=== PATIENT | male | born 1980 | race Caucasian/White ===

== ENCOUNTER 2025-04-25 19:48 | Emergency (ER) | payer OTHER, SELFPAY ==
[2025-04-25] VITALS (9 sets, daily range): BP systolic 136–161; BP diastolic 93–106; PULSE 82–110; RESP 12–26; TEMP 36.9; O2SAT 98–100
--- NOTE | ~2025-04-25 | XR_ITS ---
XR chest 2V Ordering provider: Hugo Aburto MD History: 44 years Male with . coughing, hemoptysis . Comparison: None. FINDINGS: MEDIASTINUM: The cardiac silhouette is not enlarged. LUNGS: No infiltrates, effusions or pneumothorax. OTHER: No free air under the diaphragm. IMPRESSION: No acute cardiopulmonary pathology. Reviewed, dictated and finalized at location A.
--- NOTE | ~2025-04-25 | CT_ITS ---
CT Scan of the Chest without Contrast: Clinical Indication: Esophageal perforation Technique: Contiguous sections were acquired throughout the neck and chest without intravenous contra st. 15 mL of oral contrast was administered just prior to the scan. Dose reduction technique was used on this scan by utilizing automated exposure control and iterative reconstruction technique. The dos e-length product (DLP) was 1184.48 mGy-cm. Findings: There is extensive pneumomediastinum, with additional subcutaneous emphysema extending into the neck. There is apparent extravasation of oral contrast in the distal esophagus along the right side, exten ding to the GE junction region. There is mild inflammatory change in the epigastric region. There are minimal bilateral pleural effusions, right greater than left. There is bibasilar consolidat ion, which could reflect atelectasis versus pneumonia. No pericardial effusion. Images through the upper abdomen reveal calcified gallstone.. Impression: Extravasation of contrast from the right side of the distal esophagus, with associated extensive pneu momediastinum and additional subcutaneous emphysema extending to the neck. Findings are consistent wi th esophageal perforation. Minimal bilateral pleural effusions, right greater than left. Bibasilar pulmonary consolidation. Correlate for atelectasis versus pneumonia. Reviewed, dictated and finalized at [facility]. Impression: Extravasation of contrast from the right side of the distal esophagus, with ass ociated extensive pneumomediastinum and additional subcutaneous emphysema exten ding to the neck. Findings are consistent with esophageal perforation. Minimal bilateral pleural effusions, right greater than left. Bibasilar pulmonary consolidation. Correlate for atelectasis versus pneumonia.
--- NOTE | ~2025-04-25 | CT_ITS ---
CTA chest abdomen pelvis Ordering provider: Sophie Lassiter MD History: . c/f esoph food bolus/perf . Comparison: None. Technique: CT angiogram chest, abdomen and pelvis was performed following timed intravenous injection of contrast. Thin slice axial images and reformatted coronal images were obtained. Three dimensional reformatted images of the chest were also obtained using a [employer] workstation. Radiation reduction t echnique utilized.The dose-length product was 651.6 mGy-cm. 100 mL Omnipaque 350 was given IV. FINDINGS: CHEST: --THORACIC AORTA: normal. No aneurysm, dissection or mediastinal hematoma. --GREAT VESSELS: Normal as visualized. --PULMONARY ARTERIES: No pulmonary embolus. --VISUALIZED THORACIC INLET: Normal. --MEDIASTINUM: Pneumomediastinum is noted extending to the lower neck and upper abdomen around the proximal stomach. Possible lucency in the wall of the esophagus distally is seen posteriorly which may indicate perfora tion. Coronary arteries: Normal. Heart/other: The heart is not enlarged. Lymph nodes: No mediastinal or hilar adenopathy. --LUNGS: Trace of pleural effusion on the right. No pulmonary nodules or masses. No infiltrates or effusions. No pneumothorax. Dependent atelectatic changes. --MUSCULOSKELETAL: Superficial soft tissues: The superficial soft tissues are normal. Bones: Normal Spine. ABDOMEN/PELVIS: --MUSCULOSKELETAL: Bones: Normal spine. Superficial soft tissues: The superficial soft tissues are normal. --UPPER ABDOMINAL ORGANS: Liver: Fat infiltration. Gallbladder: Stone in the neck of the gallbladder. Spleen: Normal. Stomach/duodenum: Normal. Pancreas: Normal. Adrenals: Normal. Kidneys: Normal. --PELVIC ORGANS: The bladder is normal. No bladder stones. --BOWEL AND MESENTERY: Colon: no evidence of diverticulitis.. Normal appendix. Small Bowel: Normal. No obstruction. Peritoneum/mesentery: No free air or free fluid. No mesenteric lymphadenopathy. --RETROPERITONEUM: No retroperitoneal lymphadenopathy. --ARTERIES: ABDOMINAL AORTA: Normal. No aneurysm or dissection. RENAL ARTERIES: Normal. CELIAC AXIS: Normal. SMA: Normal. VIDA: Normal. ILIAC AND VISUALIZED FEMORAL ARTERIES: Normal. MESENTERIC ARTERIES: Normal. IMPRESSION: CHEST: 1. No evidence of dissection or aneurysm. 2. Pneumo-mediastinum extending to the lower neck and upper abdomen with highly suggestive perforati on of the esophagus. Further evaluation advised. 3. Trace of right pleural effusion. ABDOMEN/PELVIS: 1. No evidence of appendicitis, diverticulitis or intestinal obstruction. 2. No dissection or aneurysm seen. 3. Fat infiltration of the liver. 4. Cholelithiasis. Dr. Lassiter was notified with the result of the patient at 11:59 PM on April 25, 2025 Reviewed, dictated and finalized at location A. IMPRESSION: CHEST: 1. No evidence of dissection or aneurysm. 2. Pneumo-mediastinum extending to the lower neck and upper abdomen with highl y suggestive perforation of the esophagus. Further evaluation advised. 3. Trace of right pleural effusion. ABDOMEN/PELVIS: 1. No evidence of appendicitis, diverticulitis or intestinal obstruction. 2. No dissection or aneurysm seen. 3. Fat infiltration of the liver. 4. Cholelithiasis. Dr. Lassiter was notified with the result of the patient at 11:59 PM on April 25
--- OUTSIDE RECORDS SUMMARY | 2025-04-25 19:50 | XMS_ITS | Continuity of Care Document ---
Author Organization [facility] Address [address] [place] [address] Phone Care Team Providers Care Longwall Foreman Name Role Phone Sunil Toussaint PA-C Unavailable Unavailab le Allergies, Adverse Reactions, Alerts Substance Reaction Status Criticality No Known Allergies Active No Inform ation Medications Medication Instructions Dosage Effective Dates (start - stop) Status Comments Franklin 7.5 mg-325 mg tablet take 1 - 2 by mouth route every 6 - 8 as needed 1-2 - Active Franklin 5 mg-325 mg tablet take 1-2 every 4-6 hours - Active multivitamin capsule - Active Prilosec OTC 20 mg tablet,delayed release - Active Procedures Procedure Date Hand Xray Min 3 Views Postop followup visit Hand Xray Min 3 Views Postop followup visit Hand Xray Min 3 Views Postop followup visit [facility], W/O Joint(s), Prefabricated Hand [facility]PP Metacarpal FX Hand Dislocation Percu Skltl Fix W/manip Office/outpatient visit,est, mod 2017 CT Upper Extremity WO Contrast 18 3D Rendering W/Interpretation And Report ing Hand Xray Min 3 Views Office/outpatient visit,new, mod 2017 Advance Directives Directive Yes / No Effective Date File Name No Information Encounters Encounter Description Practice Location Reason(s) For Visit Diagnoses Date Provider Providers Copied on Encounter [facility], [address], [place], [id number], [place] tel:[phone] [facility] hand (chief complaint) Pain in right handDisp fx of base of 5th MC bone, r hand, 7thD [address]. [address], [place], [id number] , [place]. tel: [phone] [facility], [address] [place] [address], [id number], [place] tel:[phone] [facility] hand (chief complaint) Pain in right handDisp fx of base of 5th MC bone, r hand, D 9 Breana Barber. [address], [place], [id number] , [place]. tel: [phone] [facility], [address] [place] [address], [id number], [place] tel:[phone] [facility] hand (chief complaint) Pain in right handClosed displaced fracture of base of fifth metacarpal bone of right hand with routine healing, subsequent encounter [address], [place], [id number] , [place]. tel: [phone] [facility], [address] [place] [address], [id number], tel:[phone] [facility] No Information [address], [place], [id number] , [place]. tel: [phone] Referring Provider: Delon Nicole, [address] [place] [address], [id number] . tel:[phone] [facility], [address] [place] [address], [id number], tel:[phone] [facility] No Information [address], [place], [id number] , [place]. tel: [phone] Referring Provider: Darwin Zimmerman, [address] [place], [address] . tel:[phone] [facility], [address] [place] [address], [id number], tel:[phone] [facility] No Information [address], [place], [id number] , [place]. [phone] Referring Provider: Bao Rene, [address] [place], [address] . tel:[phone] [facility], [address] [place] [address], [id number], tel:[phone] [facility] Closed nondisplaced fracture of fourth metacarpalDisp fx of base of fourth metacarpal bone, right hand, init [address] [place] [address], [id number] , [place]. [phone] Referring Provider: Darwin Zimmerman, [address] [place], [address] . tel:[phone] Office/outpat ient visit,est, mod [facility], [address] [place] [address], [id number], [place] tel:[phone] [place] [facility] right hand pain (chief complaint) Closed nondisplaced fracture of fourth metacarpal bone of right hand with routine healing, unspecified portion of metacarpal, subsequent encounter [address]. [address], [place], [id number] , [place]. [phone] [facility], [address] [place] [address], [id number], [place] tel:[phone] [facility] Pain in right hand [address] [place] [address], [id number] , [place]. tel:[phone] Office/outpat ient visit,new, mod [facility], [address], [place], [id number], tel:[phone] [facility] right hand (chief complaint) Pain in right handClosed nondisplaced fracture of fourth metacarpal bone of right hand, unspecified portion of metacarpal, initial encounterClosed nondisplaced fracture of fifth metacarpal bone of right hand, unspecified portion of metacarpal, initial encounter 8 [address] Gore. [address], [place], [id number] , [place]. tel:[phone] Family History Family Member Type Diagnosis Age At Onset Problem (finding) Family history of Diabe tayla mellitus Payers Payer name Insurance type Covered republican ID Authorromanafly tiburciochristy(s) [facility] [id number] Social History Type Description Quantity Date Captured Comments Alcohol Use Details Unknown Caffeine Use Details Unknown Tobacco Use Status Current non-smoker 19 Smoking Status Never smoker Non-Smoking Tobacco Use Details : No Details Available : No Details Available Sex Male Vital Signs Date / Time: Height Weight BMI Pulse Rate Blood Pressure Temperature Respiratory Rate Body Surface Area Head Circumference Head Circ. Percentile Wt./Maximino. Percentile BMI percentile Pulse Ox Inhaled Ox 2:39 PM 72.00 in 87.543 kg (193.00 lbs) 26.1 8 kg/m eter (2) 2.11 meter(2) Chief Complaint And Reason For Visit From encounter dated '12/02/2018 14:30'. hand (chief complaint) Reason For Referral Reason For Referral No Information Plan Of Treatment Date Type Action Status Future Order: Radiology Order Staples nd Xray Min 3 Views ([id number]), Ordered on: Ordered Future Order: Radiology Order Staples nd Xray Min 3 Views ([id number]), Ordered on: Ordered Future Order: Radiology Order Staples nd Xray Min 3 Views ([id number]), Ordered on: Ordered Future Order: Radiology Order CT Upper Extremity W/O Contrast ([id number]), Ordered on: Ordered Future Order: Radiology Order 3D Rendering W Interpretation And Reporting ([id number]), Ordered on: Ordered Future Order: Radiology Order Staples nd Xray Min 3 Views ([id number]), Ordered on: Ordered History Of Present Illness Encounter Date Complaint History Of Prese nt Illness hand hand hand Boo Poole is a 38 year old male who is 2 weeks and 1 day status posted closed reduction and percutaneous pinning of right fourth metacarpal fx and fifth carpometacarpal dislocation. He presents today with his pins in. He is doing well overall but in some intermittent pain. He had some questions concerning bathing and cleaning the hand and pin sites. The hand is stiff. right hand pain Mr Poole is a 38 year old male who complains of right hand pain. He presents with pain on the right side. He states that the symptoms have been acute traumatic and began on 09/25/2018. He indicates the injury occurred at home. Boo sts that he struck his hand The symptoms occur intermittently. Pertinent negatives include numbness. Boo has been in a splint since his injury. right hand Functional Status Date Functional Assessmen t No Information Instructions Date Instruction Additional Infor mation XR were discussed an d reviewed. The working diagnosis and discharge plan was discussed in detail with Boo. We are going to give him a removable splint to wear. No lifting or gripping activities. We will schedule a follow up appointment in 3-4 weeks. All questions and concerns were addressed; pt understands and agrees with plan. Related to Pain in right hand The working diagnosi s and discharge plan was discussed in detail with Boo. Ct shows that she fracture is subluxed at the ring metacarpal on the right hand. We recommend that he have this repaired surgically. We will refer him t Dr. Ley for further treatment. All questions and concerns were addressed; pt understands and agrees with plan. Related to Closed nondisplaced fracture of fourth metacarpal bone of right hand with routine healing, unspecified portion of metacarpal, subsequent encounter Assessments Type Assessment Date assessment Pain in right hand assessment Disp fx of base of 5th MC bone, r hand, 7thD Patient Care Teams Name Effective Dates (start - stop) Status Members No Information
--- NOTE | 2025-04-25 20:03 | PC.NURSE ---
Pt. to x-ray.
--- NOTE | 2025-04-25 20:10 | ED_ITS ---
HPI - GI Bleed General Chief complaint: GI Bleed <Hugo Aburto MD - Last Filed: 04/27/25 05:41> Stated complaint: cough up blood <Hugo Aburto MD - Last Filed: 04/27/25 05:41> Time Seen by Provider: 04/25/25 19:52 <Hugo Aburto MD - Last Filed: 04/27/25 05:41> History of Present Illness HPI Narrative: 44-year-old male with history of reflux esophagitis presenting to the emergency department today after coughing up a small amount of blood. He states he was eating pizza when he felt like some of it got stuck in his throat and he tried to force it down. He felt a sudden sensation in his abdomen with some pain and via only coughed and then coughed up a small amount of blood. Only happened 1 time. Did not have any persistent nausea vomiting since but endorses some retrosternal and epigastric discomfort afterwards. No shortness of breath or difficulty swallowing, no neck pain, difficulty ranging his head or neck, difficulty breathing or noticing any phonation changes. No trauma or injury otherwise. Was otherwise in his normal state of health. Has never happened before but states that he does get food sometimes stuck in his throat from the esophagitis. Takes medications for this at home. <Hugo Aburto MD - Last Filed: 04/27/25 05:41> Related Data Allergies/Adverse reactions: Allergies Allergy/AdvReac Type Severity Reaction Status Date / Time No Known Allergies Allergy Verified 04/25/25 20:21 <Hugo Aburto MD - Last Filed: 04/27/25 05:41> Review of Systems 2 Review of Systems: As reviewed above in HPI <Hugo Aburto MD - Last Filed: 04/27/25 05:41> PMFSH Past Medical History Medical History: Medical History Reflux esophagitis <Hugo Aburto MD - Last Filed: 04/27/25 05:41> Exam 2 Narrative: GENERAL: [Well-appearing, well-nourished, and in no acute distress.] HEAD: [Normocephalic, atraumatic.] EYES: [PERRLA and EOMI.] ENT: Nares clear, no rhinorrhea or epistaxis. Mucous membranes moist. NECK: Supple. CHEST: [Clear to auscultation. No respiratory distress.] HEART: [Regular rate and rhythm]. No murmur heard. [Normal peripheral pulses.] ABDOMEN: [Soft, nondistended], [nontender], [No rigidity or guarding] EXTREMITIES: Normal range of motion. [No edema.] SKIN: Warm, dry, no rash. NEURO: [No focal deficits]. Alert and oriented [x3.] PSYCH: [Normal mood and affect.] <Hugo Aburto MD - Last Filed: 04/27/25 05:41> Course Course Emergency Course: Patient signed out to me. Was reported that patient had been improving and his workup was generally unremarkable but around the time he PO challenged he acutely decompensated, experiencing tremendous pain and becoming restless, unable to lie flat and becoming profoundly diaphoretic. EKG had been ordered as had CT scan. Evaluated patient at bedside and he does appear uncomfortable, very diaphoretic. Patient has received antiemetics and analgesics. He require several doses in order to facilitate being able to be comfortable enough to lay still for study. Troponin is drawn and normal. CTA results as below. IV fluids and vancomycin and Zosyn are ordered. Patient's review of their insurance information regarding where to transfer. Based on this, started with [facility]. conference service coordinator called multiple times but did not get a response. conference service coordinator called us multiple times keeping us updated. Simultaneously, attempted to contact [facility] for transfer. I was informed by academic services coordinator that there cardiothoracic surgeon was just going into another case which would be very prolonged. Recommended proceeding with alternative locations. Spoke with cardiothoracic surgeon Dr Fischer (Dr Marrero) at [facility] ([facility]) who notes that pneumomediastinum alone does not confirm perforated esophagus. I note the new presence of pleural effusion, though depicted as trace. Recommends water soluble study (versus CT with oral contrast) and, if normal, observe patient and repeat in 12-[address] scan performed as below. Spoke again with Dr Fischer who asks for location of perforation. Spoke with Stat Rad radiologist Dr Raghav Pathak who confirms perforation is at the GE junction at the diaphragm, very obvious. Patient to be transferred ED to ED followed by immediately going to the OR. Spoke with Dr Kaminski, ED attending who accepts patient. Noted which antibiotics had been started. Given the delay in ability to transfer patient by [facility] EMS ground unit, patient to be flown by helicopter. He and his verify understanding. He receives another dose of Dilaudid just as flight crew arrives. == Critical Care: 1 or more vital organ systems impaired with a high probability of imminent or life-threatening deterioration in the patient's condition requiring frequent personal assessment and manipulation of the patient's condition. This included time spent evaluating the patient, speaking with EMS pre-hospital personnel and family, reviewing/interpreting laboratory/imaging studies, discussing the case with consultants or admitting teams, retrieving data and reviewing charts, monitoring for decompensation, documenting the visit, and performing bundled procedures exclusive of separately billed procedures. <Sophie Lassiter MD - Last Filed: 04/26/25 03:38> Vital Signs Vital signs: Vital Signs Pulse Rate 89 04/25/25 19:56 Respiratory Rate 12 04/25/25 19:56 Blood Pressure 148/104 H 04/25/25 19:56 Pulse Oximetry 100 04/25/25 19:56 Temperature 36.9 C 04/25/25 20:15 Pulse Rate 81 04/26/25 02:56 Respiratory Rate 18 04/26/25 02:56 Blood Pressure 137/97 H 04/26/25 02:56 Pulse Oximetry 04/26/25 02:56 Oxygen Delivery Nasal Cannula 04/26/25 00:42 Oxygen Flow Rate 2 04/26/25 00:42 <Hugo Aburto MD - Last Filed: 04/27/25 05:41> Vital Signs Pulse Rate 89 04/25/25 19:56 Respiratory Rate 12 04/25/25 19:56 Blood Pressure 148/104 H 04/25/25 19:56 Pulse Oximetry 100 04/25/25 19:56 Temperature 36.9 C 04/25/25 20:15 Pulse Rate 81 04/26/25 02:56 Respiratory Rate 18 04/26/25 02:56 Blood Pressure 137/97 H 04/26/25 02:56 Pulse Oximetry 100 04/26/25 02:56 Oxygen Delivery Nasal Cannula 04/26/25 00:42 Oxygen Flow Rate 2 04/26/25 00:42 <Sophie Lassiter MD - Last Filed: 04/26/25 03:38> MDM - GI Bleed MDM Narrative Medical decision making narrative: 44-year-old male with history of reflux esophagitis presenting to the emergency department today after coughing up a small amount of blood. He states he was eating pizza when he felt like some of it got stuck in his throat and he tried to force it down. He felt a sudden sensation in his abdomen with some pain and via only coughed and then coughed up a small amount of blood. Only happened 1 time. Did not have any persistent nausea vomiting since but endorses some retrosternal and epigastric discomfort afterwards. No shortness of breath or difficulty swallowing, no neck pain, difficulty ranging his head or neck, difficulty breathing or noticing any phonation changes. No trauma or injury otherwise. Was otherwise in his normal state of health. Has never happened before but states that he does get food sometimes stuck in his throat from the esophagitis. Takes medications for this at home. Patient is otherwise well-appearing not any acute distress, not ill or toxic in appearance with no signs of crepitus on palpation of his head or neck, sternal area. No wheezing or tachypnea or any accessory breath sounds on auscultation. Posterior oropharynx without any obvious bleeding. Suspect he had a episode of food getting stuck in his esophagus from the reflux esophagitis which got dislodged and then he had a small episode of hemoptysis/hematemesis from minor tear or irritation in the mucosa. He has not had any nausea, vomiting or cough since and otherwise is well appearing. Will obtain multiple view chest x-ray to see if there is any free air or obvious signs of infiltrate or effusions or any pneumomediastinum. Basic laboratory studies were drawn and he was given Protonix and Pepcid for symptoms and re-evaluated. Patient's laboratory studies showed no leukocytosis or significant anemia. Platelets of 382. D-dimer is negative, coagulation panel unremarkable. Normal electrolytes, normal renal function, normal glucose, normal LFTs., normal lipase. Chest x-ray unremarkable with no free air or infiltrates, effusions or pneumothorax. Patient re-evaluated and still felt uncomfortable with epigastric discomfort and feels like something is stuck in his abdomen. No neck pain or chest discomfort. Tried giving him some Maalox and sucralfate to see if that helps with the symptoms and he immediately got diaphoretic and felt worse after swallowing. He was given morphine and CTs with contrast of the chest abdomen pelvis were ordered to evaluate for other potential causes or signs of injury or source to cause patient's symptoms. Patient care transition to oncoming ER physician pending CT scans and re-evaluation. <Hugo Aburto MD - Last Filed: 04/27/25 05:41> Medical Records Attestation: I reviewed the patient's medical records. <Hugo Aburto MD - Last Filed: 04/27/25 05:41> Lab Data Attestation: I reviewed the patient's lab results. <Hugo Aburto MD - Last Filed: 04/27/25 05:41> Result diagrams: 04/25/25 20:13 04/25/25 20:13 <Hugo Aburto MD - Last Filed: 04/27/25 05:41> Labs: Lab Results 04/25/25 04/25/25 04/25/25 Range/Units 20:12 20:13 23:27 WBC 7.6 (4.5-10.0) K/mm3 RBC 5.37 (4.6-6.20) M/mm3 Hgb 13.2 L (14.0-18.0) g/dL Hct 44.4 (42.0-52.0) % MCV 82.7 (80-100) fl MCH 24.6 L (26-34) pg MCHC 29.7 L (32-36) g/dl RDW 19.8 H (11.5-14.5) % Plt Count 382 H (150-375) k/mm3 MPV 9.4 (7.4-10.4) fl Immature Gran % (Auto) 0.3 (0-0.5) % Neut % (Auto) 50.6 (45.5-73.1) % Lymph % (Auto) 34.7 (18.3-44.2) % [place] % (Auto) 9.3 H (2.6-8.5) % Eos % (Auto) 4.6 H (0-4.4) % Baso % (Auto) 0.5 (0.2-1.2) % Lymph # (Auto) 2.62 (0.9-3.2) K/mm3 [place] # (Auto) 0.7 H (0.1-0.6) K/mm3 Eos # (Auto) 0.4 H (0-0.3) K/mm3 Baso # (Auto) 0.0 (0.0-0.1) K/mm3 Abs Immat Gran (auto) 0.02 (0.00-0.031) K/mm3 Absolute Neuts (auto) 3.8 (1.3-6.7) K/mm3 Absolute Nucleated RBC 0.000 (0.0-0.012) K/mm3 Band Neutrophils % Not Reportable Nucleated RBC % 0.0 (0.0-0.2) % Platelet Estimate Adequate (Adequate) Hypochromasia 1+ Poikilocytosis 1+ Ovalocytes 1+ Schistocytes None seen PT 13.5 (11.1-14.7) Seconds INR 1.0 APTT 21.7 L (22.3-36.8) Seconds D-Dimer < 0.27 (<0.48) ug/mL Sodium 139 (137-145) mmol/L Potassium 4.2 (3.4-5.0) mmol/L Chloride 106 (98-107) mmol/L Carbon Dioxide 24 (22-30) mmol/L Anion Gap 9 (4-12) mmol/L BUN 9 (9-20) mg/dL Creatinine 1.28 (0.7-1.3) mg/dL Estim Creat Clear Calc 70 ml/min Estimated GFR > 60 (59 - ) Glucose 95 (65-110) mg/dL Lactic Acid 1.1 (0.7-2.0) mmol/L Calcium 9.4 (8.4-10.2) mg/dL Magnesium 1.9 (1.6-2.3) mg/dL Total Bilirubin 0.6 (0.2-1.3) mg/dL AST 38 (17-59) U/L ALT 27 (6-50) U/L Alkaline Phosphatase 40 (38-126) U/L Troponin I < 0.012 < 0.012 (0.000-0.034) ng/mL Total Protein 7.0 (6.3-8.2) g/dL Albumin 4.1 (3.5-5.1) g/dL Lipase 161 (23-300) U/L Nasal MRSA (PCR) (NOT DETECTE) Blood Type O Negative Antibody Screen Negative 04/26/25 Range/Units 00:18 WBC (4.5-10.0) K/mm3 RBC (4.6-6.20) M/mm3 Hgb (14.0-18.0) g/dL Hct (42.0-52.0) % MCV (80-100) fl MCH (26-34) pg MCHC (32-36) g/dl RDW (11.5-14.5) % Plt Count (150-375) k/mm3 MPV (7.4-10.4) fl Immature Gran % (Auto) (0-0.5) % Neut % (Auto) (45.5-73.1) % Lymph % (Auto) (18.3-44.2) % [place] % (Auto) (2.6-8.5) % Eos % (Auto) (0-4.4) % Baso % (Auto) (0.2-1.2) % Lymph # (Auto) (0.9-3.2) K/mm3 [place] # (Auto) (0.1-0.6) K/mm3 Eos # (Auto) (0-0.3) K/mm3 Baso # (Auto) (0.0-0.1) K/mm3 Abs Immat Gran (auto) (0.00-0.031) K/mm3 Absolute Neuts (auto) (1.3-6.7) K/mm3 Absolute Nucleated RBC (0.0-0.012) K/mm3 Band Neutrophils % Nucleated RBC % (0.0-0.2) % Platelet Estimate (Adequate) Hypochromasia Poikilocytosis Ovalocytes Schistocytes PT (11.1-14.7) Seconds INR APTT (22.3-36.8) Seconds D-Dimer (<0.48) ug/mL Sodium (137-145) mmol/L Potassium (3.4-5.0) mmol/L Chloride (98-107) mmol/L Carbon Dioxide (22-30) mmol/L Anion Gap (4-12) mmol/L BUN (9-20) mg/dL Creatinine (0.7-1.3) mg/dL Estim Creat Clear Calc ml/min Estimated GFR (59 - ) Glucose (65-110) mg/dL Lactic Acid 1.4 (0.7-2.0) mmol/L Calcium (8.4-10.2) mg/dL Magnesium (1.6-2.3) mg/dL Total Bilirubin (0.2-1.3) mg/dL AST (17-59) U/L ALT (6-50) U/L Alkaline Phosphatase (38-126) U/L Troponin I (0.000-0.034) ng/mL Total Protein (6.3-8.2) g/dL Albumin (3.5-5.1) g/dL Lipase (23-300) U/L Nasal MRSA (PCR) Not detected (NOT DETECTE) Blood Type Antibody Screen <Hugo Aburto MD - Last Filed: 04/27/25 05:41> Lab Results 04/25/25 04/25/25 04/25/25 Range/Units 20:12 20:13 23:27 WBC 7.6 (4.5-10.0) K/mm3 RBC 5.37 (4.6-6.20) M/mm3 Hgb 13.2 L (14.0-18.0) g/dL Hct 44.4 (42.0-52.0) % MCV 82.7 (80-100) fl MCH 24.6 L (26-34) pg MCHC 29.7 L (32-36) g/dl RDW 19.8 H (11.5-14.5) % Plt Count 382 H (150-375) k/mm3 MPV 9.4 (7.4-10.4) fl Immature Gran % (Auto) 0.3 (0-0.5) % Neut % (Auto) 50.6 (45.5-73.1) % Lymph % (Auto) 34.7 (18.3-44.2) % [place] % (Auto) 9.3 H (2.6-8.5) % Eos % (Auto) 4.6 H (0-4.4) % Baso % (Auto) 0.5 (0.2-1.2) % Lymph # (Auto) 2.62 (0.9-3.2) K/mm3 [place] # (Auto) 0.7 H (0.1-0.6) K/mm3 Eos # (Auto) 0.4 H (0-0.3) K/mm3 Baso # (Auto) 0.0 (0.0-0.1) K/mm3 Abs Immat Gran (auto) 0.02 (0.00-0.031) K/mm3 Absolute Neuts (auto) 3.8 (1.3-6.7) K/mm3 Absolute Nucleated RBC 0.000 (0.0-0.012) K/mm3 Band Neutrophils % Not Reportable Nucleated RBC % 0.0 (0.0-0.2) % Platelet Estimate Adequate (Adequate) Hypochromasia 1+ Poikilocytosis 1+ Ovalocytes 1+ Schistocytes None seen PT 13.5 (11.1-14.7) Seconds INR 1.0 APTT 21.7 L (22.3-36.8) Seconds D-Dimer < 0.27 (<0.48) ug/mL Sodium 139 (137-145) mmol/L Potassium 4.2 (3.4-5.0) mmol/L Chloride 106 (98-107) mmol/L Carbon Dioxide 24 (22-30) mmol/L Anion Gap 9 (4-12) mmol/L BUN 9 (9-20) mg/dL Creatinine 1.28 (0.7-1.3) mg/dL Estim Creat Clear Calc 70 ml/min Estimated GFR > 60 (59 - ) Glucose 95 (65-110) mg/dL Lactic Acid 1.1 (0.7-2.0) mmol/L Calcium 9.4 (8.4-10.2) mg/dL Magnesium 1.9 (1.6-2.3) mg/dL Total Bilirubin 0.6 (0.2-1.3) mg/dL AST 38 (17-59) U/L ALT 27 (6-50) U/L Alkaline Phosphatase 40 (38-126) U/L Troponin I < 0.012 < 0.012 (0.000-0.034) ng/mL Total Protein 7.0 (6.3-8.2) g/dL Albumin 4.1 (3.5-5.1) g/dL Lipase 161 (23-300) U/L Nasal MRSA (PCR) (NOT DETECTE) Blood Type O Negative Antibody Screen Negative 04/26/25 Range/Units 00:18 WBC (4.5-10.0) K/mm3 RBC (4.6-6.20) M/mm3 Hgb (14.0-18.0) g/dL Hct (42.0-52.0) % MCV (80-100) fl MCH (26-34) pg MCHC (32-36) g/dl RDW (11.5-14.5) % Plt Count (150-375) k/mm3 MPV (7.4-10.4) fl Immature Gran % (Auto) (0-0.5) % Neut % (Auto) (45.5-73.1) % Lymph % (Auto) (18.3-44.2) % [place] % (Auto) (2.6-8.5) % Eos % (Auto) (0-4.4) % Baso % (Auto) (0.2-1.2) % Lymph # (Auto) (0.9-3.2) K/mm3 [place] # (Auto) (0.1-0.6) K/mm3 Eos # (Auto) (0-0.3) K/mm3 Baso # (Auto) (0.0-0.1) K/mm3 Abs Immat Gran (auto) (0.00-0.031) K/mm3 Absolute Neuts (auto) (1.3-6.7) K/mm3 Absolute Nucleated RBC (0.0-0.012) K/mm3 Band Neutrophils % Nucleated RBC % (0.0-0.2) % Platelet Estimate (Adequate) Hypochromasia Poikilocytosis Ovalocytes Schistocytes PT (11.1-14.7) Seconds INR APTT (22.3-36.8) Seconds D-Dimer (<0.48) ug/mL Sodium (137-145) mmol/L Potassium (3.4-5.0) mmol/L Chloride (98-107) mmol/L Carbon Dioxide (22-30) mmol/L Anion Gap (4-12) mmol/L BUN (9-20) mg/dL Creatinine (0.7-1.3) mg/dL Estim Creat Clear Calc ml/min Estimated GFR (59 - ) Glucose (65-110) mg/dL Lactic Acid 1.4 (0.7-2.0) mmol/L Calcium (8.4-10.2) mg/dL Magnesium (1.6-2.3) mg/dL Total Bilirubin (0.2-1.3) mg/dL AST (17-59) U/L ALT (6-50) U/L Alkaline Phosphatase (38-126) U/L Troponin I (0.000-0.034) ng/mL Total Protein (6.3-8.2) g/dL Albumin (3.5-5.1) g/dL Lipase (23-300) U/L Nasal MRSA (PCR) Not detected (NOT DETECTE) Blood Type Antibody Screen <Sophie Lassiter MD - Last Filed: 04/26/25 03:38> Imaging Data Attestation: I personally reviewed and interpreted this imaging study as follows: < Hugo Aburto MD - Last Filed: 04/27/25 05:41> My impression: Impressions Chest X-Ray 04/25/25 20:32 IMPRESSION: No acute cardiopulmonary pathology. <Hugo Aburto MD - Last Filed: 04/27/25 05:41> Radiologist's impression: Impressions Chest X-Ray 04/25/25 20:32 IMPRESSION: No acute cardiopulmonary pathology. Chest/Abdomen/Pelvis CTA 04/25/25 23:38 IMPRESSION: CHEST: 1. No evidence of dissection or aneurysm. 2. Pneumo-mediastinum extending to the lower neck and upper abdomen with highly suggestive perforation of the esophagus. Further evaluation advised. 3. Trace of right pleural effusion. ABDOMEN/PELVIS: 1. No evidence of appendicitis, diverticulitis or intestinal obstruction. 2. No dissection or aneurysm seen. 3. Fat infiltration of the liver. 4. Cholelithiasis. Dr. Lassiter was notified with the result of the patient at 11:59 PM on April 25, 2025 CT Neck Soft Tissue / Chest with contrast Stat Rad: Diffuse of tissue emphysema deep neck space. Pneumomediastinum. Bilateral pleural effusions. Right more than left basilar atelectasis. Contrast extravasation outside of the esophagus complete suspicious for esophageal tear. <Sophie Lassiter MD - Last Filed: 04/26/25 03:38> Critical Care Time Critical Care Time Critical Care Time: Yes <Hugo Aburto MD - Last Filed: 04/27/25 05:41> Yes <Sophie Lassiter MD - Last Filed: 04/26/25 03:38> Total Critical Care Time: 75 <Hugo Aburto MD - Last Filed: 04/27/25 05:41> 50 <Sophie Lassiter MD - Last Filed: 04/26/25 03:38> Discharge Plan Discharge Clinical Impression: Hematemesis, Erika-Haque syndrome, Acute epigastric pain, Esophageal tear, Pneumomediastinum <Hugo Aburto MD - Last Filed: 04/27/25 05:41> Patient Disposition: Acute Care Hospital <Hugo Aburto MD - Last Filed: 04/27/25 05:41> Condition: Serious <Hugo Aburto MD - Last Filed: 04/27/25 05:41> Patient Language: Mohawk <Hugo Aburto MD - Last Filed: 04/27/25 05:41> Follow-up/Referrals: UNKNOWN,DOCTOR [Primary Care Provider] - <Hugo Aburto MD - Last Filed: 04/27/25 05:41> Time of Disposition: 00:37 <Hugo Aburto MD - Last Filed: 04/27/25 05:41> 00:37 <Sophie Lassiter MD - Last Filed: 04/26/25 03:38>
[2025-04-25 20:22] LABS: Hematocrit 44.4 % (42.0-52.0); Hemoglobin 13.2 g/dL (14.0-18.0); Immature Granulocyte Percent A 0.3 % (0-0.5); Lymphocytes Absolute Auto 2.62 K/mm3 (0.9-3.2); Mean Corpuscular HGB Conc 29.7 g/dl (32-36); Mean Corpuscular Hemoglobin 24.6 pg (26-34); Mean Corpuscular Volume 82.7 fl (80-100); Nucleated Red Blood Cells Absolute Auto 0.000 K/mm3 (0.0-0.012); Nucleated Red Blood Cells Perc 0.0 % (0.0-0.2); Platelet Count Result 382 k/mm3 (150-375); Red Blood Count 5.37 M/mm3 (4.6-6.20); White Blood Count 7.6 K/mm3 (4.5-10.0)
--- OUTSIDE RECORDS SUMMARY | 2025-04-25 20:27 | XMS_ITS | Continuity of Care Document ---
Author Organization [facility] Address [address] [place] [address] Phone Care Team Providers Care Shake Packer Name Role Phone Sunil Toussaint PA-C Unavailable Unavailab le Allergies, Adverse Reactions, Alerts Substance Reaction Status Criticality No Known Allergies Active No Inform ation Medications Medication Instructions Dosage Effective Dates (start - stop) Status Comments [place] 7.5 mg-325 mg tablet take 1 - 2 by mouth route every 6 - 8 as needed 1-2 - Active [place] 5 mg-325 mg tablet take 1-2 every [...] Diagnoses Date Provider Providers Copied on Encounter [facility], [address], [place], [id number], [place] tel:[phone] [facility] hand (chief complaint) Pain in right handDisp fx of base of 5th MC bone, r hand, 7thD [address] [place], [place], [id number] , [place]. tel: [phone] [facility], [address] [place] [address], [id number], [place] tel:[phone] [facility] hand (chief complaint) Pain in right handDisp fx of base of 5th MC bone, r hand, D [address] [place], [place], [id number] , [place]. tel: [phone] [facility], [address] [place] [address], [id number], [place] tel:[phone] [facility] hand (chief complaint) Pain in right handClosed displaced fracture of base of fifth metacarpal bone of right hand with routine healing, subsequent encounter [address], [place], [id number] , [place]. tel: [phone] [facility], [address] [place] [address], [id number], tel:[phone] [facility] No Information [address], [place], [id number] , [place]. tel: [phone] Referring Provider: Delon Nicole, [address] [place] [address], [id number] . tel:[phone] [facility], [address] [place] [address], [id number], tel:[phone] [facility] No Information [address], [place], [id number] , [place]. tel: [phone] Referring Provider: Darwin Zimmerman, [address] [place], [address] . tel:[phone] [facility], [address] [place] [address], [id number], tel:[phone] [facility] No Information [address], [place], [id number] , [place]. [phone] Referring Provider: Bao Rene, [address] [place], [address] . tel:[phone] [facility], [address] [place] [address], [id number], tel:[phone] [facility] Closed nondisplaced fracture of fourth metacarpalDisp fx of base of fourth metacarpal bone, right hand, init [address] [place] [address], [id number] , [place]. [phone] Referring Provider: Darwin Zimmerman, [address] [place], [address] . tel:[phone] Office/outpat ient visit,est, mod [facility], [address] [place] [address], [id number], [place] tel:[phone] [facility] right hand pain (chief complaint) Closed nondisplaced fracture of fourth metacarpal bone of right hand with routine healing, unspecified portion of metacarpal, subsequent encounter [address], [place], [id number] , [place]. [phone] [facility], [address] [place] [address], [id number], [place] tel:[phone] [facility] Pain in right hand [address] [place] [address], [id number] , [place]. tel:[phone] Office/outpat ient visit,new, mod [facility], [address], [place], [id number], tel:[phone] [facility] right hand (chief complaint) Pain in right handClosed nondisplaced fracture of fourth metacarpal bone of right hand, unspecified portion of metacarpal, initial encounterClosed nondisplaced fracture of fifth metacarpal bone of right hand, unspecified portion of metacarpal, initial encounter [address], [place], [id number] , [place]. tel:[phone] Family History Family Member Type Diagnosis Age At Onset Problem (finding) Family history of Diabe tayla mellitus Payers Payer name Insurance type Covered constitution party ID Authorromanafly tiburciochristy(s) [facility] [id number] Social History Type Description Quantity Date Captured [...] Order Staples nd Xray Min 3 Views ([id number]), Ordered on: Ordered Future Order: Radiology Order Staples nd Xray Min 3 Views ([id number]), Ordered on: Ordered Future Order: Radiology Order Staples nd Xray Min 3 Views ([id number]), Ordered on: Ordered Future Order: Radiology Order CT Upper Extremity W/O Contrast ([id number]), Ordered on: Ordered Future Order: Radiology Order 3D Rendering W Interpretation And Reporting ([id number]), Ordered on: Ordered Future Order: Radiology Order Staples nd Xray Min 3 Views ([id number]), Ordered on: Ordered History Of Present Illness [...]
[2025-04-25 20:32] LABS: Alanine Aminotransferase 27 U/L (6-50); Albumin Level 4.1 g/dL (3.5-5.1); Alkaline Phosphatase 40 U/L (38-126); Anion Gap 9 mmol/L (4-12); Aspartate Amino Transferase 38 U/L (17-59); Bilirubin,Total 0.6 mg/dL (0.2-1.3); Blood Urea Nitrogen 9 mg/dL (9-20); Calcium 9.4 mg/dL (8.4-10.2); Carbon Dioxide 24 mmol/L (22-30); Chloride 106 mmol/L (98-107); Estimated CRCL calculation 70 ml/min; Estimated Glomerular Filt Rate > 60; Glucose 95 mg/dL (65-110); Lipase 161 U/L (23-300); Magnesium 1.9 mg/dL (1.6-2.3); Potassium 4.2 mmol/L (3.4-5.0); Sodium 139 mmol/L (137-145); Total Protein 7.0 g/dL (6.3-8.2)
[2025-04-25 20:34] LABS: INR 1.0; Prothrombin Time 13.5 Seconds (11.1-14.7)
[2025-04-25 20:35] LABS: Partial Thromboplastin Time 21.7 Seconds (22.3-36.8)
[2025-04-25 20:43] LABS: Hypochromasia 1+; Ovalocytes 1+; Poikilocytosis 1+; Schistocytes None Seen
[2025-04-25] MEDS: FAMOTIDINE 20 MG/2 ML VIAL IV PUSH (20:45)
[2025-04-25] MEDS: PANTOPRAZOLE SODIUM IV 40 MG VIAL IV PUSH (20:46)
--- NOTE | 2025-04-25 20:48 | PC.NURSE ---
Dr. Aburto at bedside updating pt. and visitor.
--- NOTE | 2025-04-25 21:30 | PC.NURSE ---
Pt. reports increase in epigastric pain. Rates it 6/10, describes it as a tightness. Worse on inhalation. Pt. is diaphoretic. Speech clear. Alert, A&Ox4. VSS. Dr. Aburto at bedside assessing pt.
[2025-04-25] MEDS: MORPHINE SULFATE (*CRX) 4 MG/ML INJ IV PUSH (21:42)
--- NOTE | 2025-04-25 21:42 | ECG_ITS ---
Test Date: 2025-04-25 22:58:58 Measurements Intervals [place] Rate: 97 P: 50 MA: 146 QRS: -35 QRSD: 105 T: 36 QT: 322 QTc: 411 Interpretive Statements SINUS RHYTHM POSSIBLE LEFT ATRIAL ENLARGEMENT [-0.1mV P-WAVE IN V1/V2] LEFT AXIS DEVIATION [QRS AXIS < -30] No previous ECG available for comparison Electronically Signed On 04-26-2025 16:39:00 CDT by Starla Ridley
[2025-04-25] MEDS: ONDANSETRON INJ 4 MG/2 ML VIAL IV PUSH (21:53)
--- NOTE | 2025-04-25 22:08 | PC.NURSE ---
Unable to obtain ordered EKG d/t pt. being diaphoretic and pt. being unable to sit still. Pt. unable to lean back or lie flat. Dr. Lassiter notified and at bedside assessing pt.
[2025-04-25] MEDS: diazePAM INJ (*CRX) 10 MG/2 ML SYRINGE 5 MG IV PUSH (22:13)
--- NOTE | 2025-04-25 22:23 | PC.NURSE ---
Pt. continues to move. Still unable to obtain EKG. Pt. states I'm panicking. I feel like I can't breathe. 2L NC applied for pt. comfort.
[2025-04-25 22:40] LABS: Troponin I < 0.012 ng/mL (0.000-0.034)
[2025-04-25] MEDS: HYDROmorphone HCL INJ (*CRX) 2 MG/ML VIAL 1 MG IV PUSH ×2 (22:40→23:04)
[2025-04-25] MEDS: GLUCAGON FOR INJ 1 MG VIAL IM (22:58)
--- NOTE | 2025-04-25 22:58 | PC.NURSE ---
1mL of sterile water added to glucagon to reconstitute.
--- NOTE | 2025-04-25 23:05 | PC.NURSE ---
Pt. finally able to lay down in bed. Pt. able to hold still for a short period of time. CT notified that pt. is ready. CT en route to get pt. and will bring pt. to CT on a monitor.
--- NOTE | 2025-04-25 23:11 | PC.NURSE ---
Pt. to CT.
[2025-04-25 23:53] LABS: Troponin I < 0.012 ng/mL (0.000-0.034)
--- NOTE | 2025-04-25 23:53 | PC.NURSE ---
Bedside report given to CARYN Duque by this RN. Dr. Lassiter at bedside updating pt. and pt. . All questions answered at this time. Pt. c/o nausea, pain and requesting IV fluids d/t constant sweating. Dr. Lassiter aware. See MAR for interventions.
[2025-04-26 00:03] VITALS: BP 141/90; PULSE 95; RESP 22; O2SAT 99
[2025-04-26] MEDS: SODIUM CHLORIDE 0.9% IV 1,000 ML 999 ML IV CONT (00:03)
[2025-04-26] MEDS: HYDROmorphone HCL INJ (*CRX) 2 MG/ML VIAL 1 MG IV PUSH ×2 (00:03→03:36)
[2025-04-26] MEDS: PIPERACILLIN/TAZ 4.5G/NS 100ML 4.5 GM/100 ML BAG IVPB (00:19)
[2025-04-26 00:42] VITALS: O2SAT 99
[2025-04-26] MEDS: VANCOMYCIN 1,250 MG/NS 250 ML 1,250 MG/250 ML BAG 166.67 MG IVPB (00:54)
[2025-04-26 01:36] LABS: MRSA (PCR) NOT DETECTED (NOT DETECTE)
[2025-04-26 01:43] VITALS: BP 147/98; PULSE 92; RESP 19; O2SAT 100
[2025-04-26 01:47] VITALS: BP 147/87; PULSE 88; RESP 14; O2SAT 100
[2025-04-26] MEDS: METOCLOPRAMIDE HCL INJ 10 MG/2 ML VIAL IV PUSH (02:40)
[2025-04-26 02:56] VITALS: BP 137/97; PULSE 81; RESP 18; O2SAT 100
[2025-04-26] MEDS: VANCOMYCIN 1,000 MG/NS 250 ML 1,000 MG/250 ML BAG 250 MG IVPB (03:09)
[2025-04-26] MEDS: ONDANSETRON INJ 4 MG/2 ML VIAL IV PUSH (03:43)
== END 2025-04-26 03:43 | disposition short-term general hospital (02) ==
PROVIDERS: Student in an Organized Health Care Education/Training Program; Emergency Provider Student in an Organized Health Care Education/Training Program
DX: K22.6 Gastro-esophageal laceration-hemorrhage syndrome (principal); J98.2 Interstitial emphysema; R10.13 Epigastric pain
CPT/HCPCS: 36415; 70491; 71046; 71260; 71275; 74174; 80053; 83605; 83690; 83735; 84484; 85025; 85380; 85610; 85730; 86850; 86900; 86901; 87040; 87641; 93005; 96365; 96366; 96367; 96374; 96375; 96376; 99285; J1171; J1610; J2270; J2405; J2470; J2543; J2765; J3360; J3373; J7030; Q9967